=== PATIENT | male | born 1970 | race American Indian/Alaskan Native ===

== ENCOUNTER 2021-07-20 22:33 | Emergency (ER) | payer MEDICARE ==
[2021-07-21] MEDS ORDERED: ACETAMINOPHEN 500 MG TAB PO ONE (01:04)
[2021-07-21] MEDS ORDERED: IBUPROFEN 600 MG TAB PO ONE (01:04)
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
[2021-07-21 03:15] VITALS: BP 142/78
== END 2021-07-21 03:15 | disposition home or self-care (01) ==
LOC: ED 22:33
DX: S09.90XA Unspecified injury of head, initial encounter (principal); M62.838 Other muscle spasm; F17.200 Nicotine dependence, unspecified, uncomplicated; V89.2XXA Person injured in unspecified motor-vehicle accident, traffic, initial encounter; Y93.89 Activity, other specified; Y92.89 Other specified places as the place of occurrence of the external cause; Y99.8 Other external cause status
CPT/HCPCS: 70450; 72125; 99283